=== PATIENT | female | born 1970 | race Caucasian/White ===

== ENCOUNTER → 2020-06-01 | Outpatient (CLI) | payer OTHER ==
[~2020-06-01] MED LIST: CARV12.52 PO; FLUC150T2 PO; INSU100V SQ; LOSA100T14 PO; METH5TAB6 PO; NORE5TAB12 PO
[2020-06-01 16:33] LABS: BASOPHILS % (AUTO) 1 % (0-1); EOSINOPHILS % (AUTO) 1 % (1-7); LYMPHOCYTES % (AUTO) 32 % (22-44); MEAN CORPUSCULAR HEMOGLOBIN 22.1 pg (27.0-34.8); MEAN CORPUSCULAR HGB CONC 30.6 g/dL (32.4-35.8); MEAN PLATELET VOLUME 9.1 fL (7.4-10.4); MONOCYTES % (AUTO) 11 % (2-9); NEUTROPHILS % (AUTO) 55 % (42-75); PLATELET COUNT 392 x10^3/uL (130-400); RED BLOOD COUNT 4.83 x10^6/uL (3.82-5.3); RED CELL DISTRIBUTION WIDTH 20.8 % (9.6-15.2)
[2020-06-01 16:39] LABS: MD MORPH REVIEW ONLY
[2020-06-01 16:44] LABS: ALANINE AMINOTRANSFERASE 21 U/L (12-78); ALBUMIN 3.6 g/dL (3.4-5.0); ANION GAP 3 mmol/L (5-15); CALCIUM 8.5 mg/dL (8.5-10.1); CHLORIDE 110 mmol/L (98-107); CREATININE 0.98 mg/dL (0.55-1.02)
[2020-06-01 16:48] LABS: ALKALINE PHOSPHATASE 45 U/L (45-117); BILIRUBIN,TOTAL 0.4 mg/dL (0.2-1.0); TOTAL PROTEIN 7.5 g/dL (6.4-8.2)
[2020-06-01 16:49] LABS: MICROSCOPIC NOT IND
[2020-06-01 19:47] LABS: ANISOCYTOSIS 1+; MICROCYTOSIS 1+
[2020-06-01 19:49] LABS: <PLATELET ESTIMATE> ADEQUATE; <PLT MORPHOLOGY> NORMAL PLT MORPH; OVALOCYTES 1+; POLYCHROMASIA 1+
== END | disposition home or self-care (01) ==
LOC: STAR 14:48
PROVIDERS: ATTEND Obstetrics & Gynecology Gynecology
DX: Z01.812 Encounter for preprocedural laboratory examination (principal); Z20.828 Contact with and (suspected) exposure to other viral communicable diseases; N93.9 Abnormal uterine and vaginal bleeding, unspecified
CPT/HCPCS: 80053; 81003; 84703; 85025; 87635; 93005

== ENCOUNTER 2020-06-06 08:24 | Day surgery (SDC) | payer OTHER ==
[~2020-06-06] VITALS: Ht 170.2 cm; Wt 79.0 kg
[2020-06-06] MEDS ORDERED: CHLORHEXIDINE 15 ML UDC MM STA (08:34)
[2020-06-06] MEDS ORDERED: LACTATED RINGERS 1,000 ML IV SCH (09:00)
[2020-06-06 09:08] LABS: HCG UR SG 1.018 (1.003-1.030)
[2020-06-06] MEDS ORDERED: DEXAMETHASONE 4 MG/ML, 1ML ONE (10:46)
[2020-06-06] MEDS ORDERED: MIDAZOLAM 1 MG/ML, 2ML ONE (10:46)
[2020-06-06] MEDS ORDERED: ONDANSETRON 2MG/ML, 2ML ONE (10:46)
[2020-06-06] MEDS ORDERED: PROPOFOL 10 MG/ML, 20ML ONE (10:46)
[2020-06-06] MEDS ORDERED: FENTANYL PF 100 MCG/2ML ONE (10:47)
[2020-06-06] MEDS ORDERED: hydrALAzine 20 MG/ML, 1ML ONE (11:28)
[2020-06-06] MEDS ORDERED: hydrALAzine 20 MG/ML, 1ML IV PRN (11:30)
[2020-06-06] MEDS ORDERED: KETOROLAC 30 MG/1 ML IVPush PRN (11:30)
[2020-06-06] MEDS ORDERED: ONDANSETRON 2MG/ML, 2ML IVPush PRN (11:30)
[2020-06-06] MEDS ORDERED: ACETAMINOPHEN 325 MG TABLET PO PRN (11:30)
[2020-06-06] MEDS ORDERED: FENTANYL PF 100 MCG/2ML IV PRN (11:30)
[2020-06-06] MEDS ORDERED: ACETAMINOPHEN 650 MG/20.3 ML UDC ONE (11:39)
[2020-06-06] MEDS ORDERED: KETOROLAC 30 MG/1 ML ONE (11:40)
[2020-06-06] MEDS ORDERED: GLYCOPYRROLATE 0.4 MG/2 ML, 2ML ONE (11:53)
[2020-06-06] MEDS: MEPERIDINE/PF 25MG/0.5ML IVPush PRN ×2 (12:22→12:26)
[2020-06-06] MEDS ORDERED: MEPERIDINE/PF 25MG/ML,1ML ONE (12:25)
[2020-06-06] MEDS ORDERED: GLYCOPYRROLATE 0.2MG/1ML, 5ML IVPush ONE (12:30)
== END 2020-06-06 15:15 | disposition home or self-care (01) ==
LOC: OUT 08:24
PROVIDERS: ATTEND Obstetrics & Gynecology Gynecology
DX: N93.9 Abnormal uterine and vaginal bleeding, unspecified (principal); I10 Essential (primary) hypertension; E10.9 Type 1 diabetes mellitus without complications; E05.00 Thyrotoxicosis with diffuse goiter without thyrotoxic crisis or storm; Z79.4 Long term (current) use of insulin; Z79.899 Other long term (current) drug therapy; Z80.3 Family history of malignant neoplasm of breast
CPT/HCPCS: 58563; 81025; 82962; 88305; J0360; J1100; J1885; J2175; J2250; J2405; J2704; J3010; J7120